=== PATIENT | female | born 1950 | race African-American/Black ===

== ENCOUNTER 2018-05-01 11:58 | Outpatient (CLI) | payer MEDICARE ==
[2018-05-01 13:12] LABS: #Basophils 0.1 thou/uL (0.0-0.2); #Eosinphils 0.1 thou/uL (0.0-0.7); #Lymphocytes 2.6 thou/uL (1.20-3.40); #Monocytes 0.6 thou/uL (0.11-0.59); #Neutrophils 5.4 thou/uL (1.40-6.50); %Eosinophils 1.5 % (0.0-10.0); %Lymphocytes 29.4 % (21.0-51.0); %Monocytes 6.6 % (0.0-10.0); %Neutrophils 61.5 % (42.0-75.0); Mean Corpuscular HGB CONC 32.6 g/dL (32.0-36.0); Mean Corpuscular Hemoglobin 30.3 pg (27.0-31.0); Mean Corpuscular Volume 93.2 fL (78.0-98.0); Mean Platelet Volume 7.1 fL (7.4-10.4); Platelet Count 307 thou/uL (130-400); RBC Distribution Width 12.6 % (11.5-14.5); Red Blood Cell (RBC) Count 4.95 mill/uL (4.20-5.40); White Blood Cell (WBC) Count 8.7 thou/uL (4.8-10.8)
[2018-05-01 16:57] LABS: Reticulocyte Count 2.3 % (0.5-1.5)
[2018-05-01 17:08] LABS: ALT (SGPT) 12 U/L (8-55); AST (SGOT) 16 U/L (5-34); Albumin 4.1 g/dL (3.4-4.8); Alkaline Phosphatase 84 U/L (40-150); Anion Gap 13 mmol/L (10-20); BUN (Urea Nitrogen) 12 mg/dL (9.8-20.1); Bilirubin, Total 0.5 mg/dL (0.2-1.2); Calc. Creatinine Clearance 0 mL/min (70-130); Calcium 9.9 mg/dL (7.8-10.44); Carbon Dioxide 31 mmol/L (23-31); Chloride 98 mmol/L (98-107); Estimated GFR-MDRD 82; Globulin 3.1 g/dL (2.4-3.5); Glucose 104 mg/dL (80-115); Iron 59 ug/dL (50-170); Iron Binding Capacity, Total 335 mcg/dL (265-497); Potassium 3.2 mmol/L (3.5-5.1); Protein, Total 7.2 g/dL (6.0-8.3); Sodium 139 mmol/L (136-145)
[2018-05-01 17:40] LABS: Folate (Folic Acid) 11.4 ng/mL (7.0-31.4)
== END 2018-05-01 11:59 | disposition home or self-care (01) ==
LOC: MADLAB 11:58
PROVIDERS: ATTEND Internal Medicine Hematology & Oncology
DX: D45 Polycythemia vera (principal)
CPT/HCPCS: 80053; 82607; 82728; 82746; 83540; 83550; 85025; 85046

== ENCOUNTER 2020-07-01 12:20 | Outpatient (CLI) | payer MEDICARE ==
--- NOTE | 2020-07-01 13:03 | RAD ---
PA AND LATERAL VIEWS CHEST: HISTORY: Bilateral respiratory crackles. Abnormal lung sounds. COMPARISON: None. FINDINGS: The heart size is borderline. The aorta is tortuous. The lungs are expanded without lobar consolida tion, pneumothoraces, jaron pulmonary edema, or pleural effusions. There are mild degenerative grey es in the spine. IMPRESSION: No acute process. POS: AH
== END 2020-07-01 12:21 | disposition home or self-care (01) ==
LOC: MADRAD 12:20
PROVIDERS: ATTEND Family Medicine
DX: R09.89 Other specified symptoms and signs involving the circulatory and respiratory systems (principal)
CPT/HCPCS: 71046

== ENCOUNTER 2021-12-22 13:01 | Outpatient (CLI) | payer MEDICARE ==
[2021-12-22 13:40] LABS: Anion Gap 16 mmol/L (10-20); BUN (Urea Nitrogen) 37 mg/dL (9.8-20.1); Calc. Creatinine Clearance 0 mL/min (70-130); Calcium 8.7 mg/dL (7.8-10.44); Carbon Dioxide 29 mmol/L (23-31); Chloride 102 mmol/L (98-107); Glucose 112 mg/dL (80-115); Magnesium 2.5 mg/dL (1.6-2.6); Phosphorus 3.1 mg/dL (2.3-4.7); Potassium 4.2 mmol/L (3.5-5.1); Sodium 143 mmol/L (136-145)
[2021-12-22 16:50] LABS: Eosinophils 1 % (0-10); Lymphocytes 17 % (21-51); MDiff Complete? YES; Mean Corpuscular HGB CONC 31.1 g/dL (32.0-36.0); Mean Corpuscular Hemoglobin 28.1 pg (27.0-31.0); Mean Corpuscular Volume 90.3 fL (78.0-98.0); Neutrophil 35 % (42-75); Platelet Count 318 thou/uL (130-400); Platelet Morphology Comment Appears Adequate; RBC Distribution Width 14.7 % (11.5-14.5); RBC Morphology Normal; Reactive Lymphocytes 47 % (0-10); Red Blood Cell (RBC) Count 4.28 mill/uL (4.20-5.40); Reflex for Review?? YES; White Blood Cell (WBC) Count 18.9 thou/uL (4.8-10.8)
== END 2021-12-22 13:02 | disposition home or self-care (01) ==
LOC: MADLAB 13:01
PROVIDERS: ATTEND Family Medicine
DX: N17.9 Acute kidney failure, unspecified (principal); D72.829 Elevated white blood cell count, unspecified
CPT/HCPCS: 36415; 80048; 83735; 84100; 85025; 85060

== ENCOUNTER 2022-05-28 15:59 | Emergency (ER) | payer OTHER ==
[2022-05-28] MEDS ORDERED: HYDROcodone/Acetaminophen 5/325 mg Tablet ONE (17:38)
== END 2022-05-28 19:00 | disposition home or self-care (01) ==
LOC: MADERS 15:59
DX: S52.572A Other intraarticular fracture of lower end of left radius, initial encounter for closed fracture (principal); S52.612A Displaced fracture of left ulna styloid process, initial encounter for closed fracture; I10 Essential (primary) hypertension; W10.9XXA Fall (on) (from) unspecified stairs and steps, initial encounter
CPT/HCPCS: 29125

== ENCOUNTER 2022-11-20 14:09 | Outpatient (CLI) | payer OTHER | END 2022-11-20 14:10 | disposition home or self-care (01) | LOC: MADRAD 14:09 | PROVIDERS: ATTEND Nurse Practitioner Family | DX: D64.9 Anemia, unspecified (principal) | CPT/HCPCS: 71046 ==